=== PATIENT | female | born 1965 | race Caucasian/White ===

== ENCOUNTER 2016-12-19 11:31 | Emergency (ER) | payer MEDICAID ==
[~2016-12-19] VITALS: Ht 144.8 cm; Wt 73.9 kg
[~2016-12-19 11:31] MED LIST: AMLO5TAB92 PO; ASPI81TA2 PO; DICL75TA5 PO; ENAL10TA PO; HYDR25TA4 PO
[2016-12-19 11:34] VITALS: BP_SYST 130
--- NOTE | 2016-12-19 11:39 | NUR ---
Yasmin johns in [facility] - 12/19/16 at 1145 by DARIN Placed in room 3 . Placed on cardiac monitor technician, blood pressure machine and pulse oximeter. To gown for exam. Side rails up.
--- NOTE | 2016-12-19 11:40 | NUR ---
Yasmin johns in [facility] - 12/19/16 at 1145 by DARIN DONNA Celestin at bedside examining patient.
--- NOTE | 2016-12-19 11:40 | NUR ---
Note undone in EDM - 12/19/16 at 1145 by SDEDEX Pt brought in by her c/o RUQ just underneath the right breast for 3 days,nausea. pt is AAOX4,sinus tachy on the monitor.abdomen soft,mild tenderness to RUQ.skin warm,dry intact.
[2016-12-19 11:43] VITALS: BP_SYST 134
--- NOTE | 2016-12-19 11:48 | NUR ---
Pt to bed 4
--- NOTE | 2016-12-19 11:55 | NUR ---
ER at bedside examining patient.
--- NOTE | 2016-12-19 12:07 | NUR ---
Pt states red bumps on arms and legs with itching for the past 3 days. Pt states started a new gym and worked out there and then the bumps appeared. No other injuries/complaints per pt or noted.
[2016-12-19] MEDS ORDERED: DEXAMETHASONE SOD PHOSPHATE 10 MG/ML VIAL IM ONE (12:15)
[2016-12-19] MEDS ORDERED: DIPHENHYDRAMINE HCL 50 MG CAPSULE PO ONE (12:15)
[2016-12-19] MEDS ORDERED: FAMOTIDINE 20 MG TABLET PO ONE (12:15)
--- NOTE | 2016-12-19 12:35 | NUR ---
dPatient given written and verbal discharge instructions and verbalizes understanding. ER MD discussed with patient the results and treatment provided. Patient in stable condition. ID arm band removed. Rx of claritin given. Patient educated on pain management and to follow up with PMD. Pain Scale 0. Opportunity for questions provided and answered.
[2016-12-19 12:36] VITALS: BP_SYST 128
== END 2016-12-19 12:35 | disposition home or self-care (01) ==
LOC: SED 11:31
DX: L50.9 Urticaria, unspecified (principal); I10 Essential (primary) hypertension; M06.9 Rheumatoid arthritis, unspecified; E78.5 Hyperlipidemia, unspecified; Z79.899 Other long term (current) drug therapy
CPT/HCPCS: 96372; 99283; J1100; Q0163

== ENCOUNTER 2017-08-23 11:52 | Emergency (ER) | payer MEDICAID ==
[~2017-08-23] VITALS: Ht 144.8 cm; Wt 73.5 kg
[2017-08-23 12:33] VITALS: BP_SYST 133
--- NOTE | 2017-08-23 12:42 | NUR ---
Patient triaged and placed in waiting room. VSS and patient appears in no acute distress at this time. Accompanied by SELF, awaiting available bed, and MD notified of need for MSE.
[2017-08-23 13:08] LABS: BILIRUBIN,URINE NEGATIVE (NEGATIVE); BLOOD, URINE NEGATIVE (NEGATIVE); CLARITY/URINE CLEAR (CLEAR); COLOR,URINE YELLOW (YELLOW); GLUCOSE,URINE NEGATIVE (NEGATIVE); KETONES,URINE NEGATIVE (NEGATIVE); LEUKOCYTE ESTERASE ,URINE NEGATIVE (NEGATIVE); NITRITE, URINE POSITIVE (NEGATIVE); PROTEIN URINE NEGATIVE (NEGATIVE); UROBILINOGEN,URINE 0.2 (0.2-1.0)
[2017-08-23 13:23] LABS: BACTERIA,URINE MANY /HPF (None Seen); RBC,URINE 0-3 /HPF (0-3); WBC,URINE 0-3 /HPF (0-3)
[2017-08-23 13:24] LABS: MUCUS,URINE 1+ /LPF (None Seen)
--- NOTE | 2017-08-23 13:41 | NUR ---
Ambulatory to hallway bed
--- NOTE | 2017-08-23 13:56 | NUR ---
Pt c/o cough, body aches, congestion, urinary discomfort x2 days. Denies fevers, denies chest pain, denies shortness of breath.
[2017-08-23 14:00] VITALS: BP_SYST 135
--- NOTE | 2017-08-23 14:00 | NUR ---
Dr. Rojas at bedside for evaluation
--- NOTE | 2017-08-23 14:31 | NUR ---
Patient given written and verbal discharge instructions and verbalizes understanding. ER MD discussed with patient the results and treatment provided. Patient in stable condition. ID arm band removed. Rx of augmentin, albuterol, motrin given. Patient educated on pain management and to follow up with PMD. Pain Scale 3/10. Opportunity for questions provided and answered.
== END 2017-08-23 14:00 | disposition home or self-care (01) ==
LOC: SED 11:52
DX: J10.1 Influenza due to other identified influenza virus with other respiratory manifestations (principal); J40 Bronchitis, not specified as acute or chronic; N39.0 Urinary tract infection, site not specified; I10 Essential (primary) hypertension; M06.9 Rheumatoid arthritis, unspecified; E78.5 Hyperlipidemia, unspecified; Z79.899 Other long term (current) drug therapy
CPT/HCPCS: 36415; 81000-TC; 86710; 87086; 99284

== ENCOUNTER 2017-12-20 21:12 | Emergency (ER) | payer MEDICAID ==
[~2017-12-20] VITALS: Ht 144.8 cm; Wt 73.5 kg
--- NOTE | 2017-12-20 21:19 | NUR ---
Patient to ER bed 1 to gown for evaluation. Side rails up. Report given to Keyonna GRIFFIN.
--- NOTE | 2017-12-20 21:25 | NUR ---
Patient to ER C/O pelvic pain 8/10 radiating to lower back for the past week with nausea today, no vomiting. Patient also C/O constipation and urinary frequency with dysuria. AAOx4, unlabored breathing, no signs of acute distress.
[2017-12-20 21:27] VITALS: BP_SYST 117
--- NOTE | 2017-12-20 21:31 | NUR ---
ER MD Bowers at bedside evaluating the patient.
[2017-12-20 21:56] LABS: BILIRUBIN,URINE NEGATIVE (NEGATIVE); BLOOD, URINE NEGATIVE (NEGATIVE); CLARITY/URINE CLEAR (CLEAR); COLOR,URINE YELLOW (YELLOW); GLUCOSE,URINE NEGATIVE (NEGATIVE); KETONES,URINE NEGATIVE (NEGATIVE); LEUKOCYTE ESTERASE ,URINE TRACE (NEGATIVE); NITRITE, URINE NEGATIVE (NEGATIVE); PROTEIN URINE TRACE (NEGATIVE)
[2017-12-20 22:05] LABS: BACTERIA,URINE FEW /HPF (None Seen); MUCUS,URINE 1+ /LPF (None Seen); RBC,URINE 0-3 /HPF (0-3)
[2017-12-20 22:30] VITALS: BP_SYST 112
--- NOTE | 2017-12-20 22:30 | NUR ---
Patient given written and verbal discharge instructions and verbalizes understanding. ER MD Bowers discussed with patient the results and treatment provided. Patient in stable condition. ID arm band removed. Rx of bactrim & pyridium given. Patient educated on pain management and to follow up with PMD. Pain Scale 0/10. Opportunity for questions provided and answered. Medication side effect fact sheet provided.
== END 2017-12-20 22:30 | disposition home or self-care (01) ==
LOC: SED 21:12
DX: N12 Tubulo-interstitial nephritis, not specified as acute or chronic (principal); M06.9 Rheumatoid arthritis, unspecified; E11.9 Type 2 diabetes mellitus without complications; I10 Essential (primary) hypertension; E78.5 Hyperlipidemia, unspecified; Z88.6 Allergy status to analgesic agent; Z79.82 Long term (current) use of aspirin; Z79.899 Other long term (current) drug therapy; Z90.710 Acquired absence of both cervix and uterus
CPT/HCPCS: 81000-TC; 99283

== ENCOUNTER 2018-02-27 15:18 | Emergency (ER) | payer MEDICAID ==
[~2018-02-27] VITALS: Ht 144.8 cm; Wt 73.5 kg
[~2018-02-27 15:18] MED LIST changes: +ASPI-1155 PO; -ASPI81TA2 PO
[2018-02-27 15:25] VITALS: BP_SYST 122
[2018-02-27 16:16] VITALS: BP_SYST 118
== END 2018-02-27 16:16 | disposition home or self-care (01) ==
LOC: SED 15:18
DX: M79.675 Pain in left toe(s) (principal); E11.9 Type 2 diabetes mellitus without complications; I10 Essential (primary) hypertension; Z88.5 Allergy status to narcotic agent; Z79.82 Long term (current) use of aspirin; Z79.899 Other long term (current) drug therapy
CPT/HCPCS: 99284

== ENCOUNTER 2018-04-20 18:20 | Emergency (ER) | payer MEDICAID ==
[~2018-04-20] VITALS: Ht 144.8 cm; Wt 74.8 kg
[2018-04-20 18:20] VITALS: BP_SYST 147
[2018-04-20 20:35] VITALS: BP_SYST 145
== END 2018-04-20 20:35 | disposition home or self-care (01) ==
LOC: SED 18:20
DX: S16.1XXA Strain of muscle, fascia and tendon at neck level, initial encounter (principal); H92.03 Otalgia, bilateral; J02.9 Acute pharyngitis, unspecified; M54.9 Dorsalgia, unspecified; E11.9 Type 2 diabetes mellitus without complications; I10 Essential (primary) hypertension; M06.9 Rheumatoid arthritis, unspecified; Z88.6 Allergy status to analgesic agent; X58.XXXA Exposure to other specified factors, initial encounter; Y93.89 Activity, other specified; Y92.89 Other specified places as the place of occurrence of the external cause; Y99.8 Other external cause status
CPT/HCPCS: 99283

== ENCOUNTER 2019-02-06 19:03 | Emergency (ER) | payer MEDICAID ==
[~2019-02-06] VITALS: Ht 144.8 cm; Wt 77.1 kg
[2019-02-06 19:05] VITALS: BP_SYST 127
[2019-02-06] MEDS ORDERED: KETOROLAC TROMETHAMINE 30 MG VIAL IM ONE (19:45)
[2019-02-06 20:29] VITALS: BP_SYST 127
== END 2019-02-06 20:29 | disposition home or self-care (01) ==
LOC: SED 19:03
DX: S83.91XA Sprain of unspecified site of right knee, initial encounter (principal); I10 Essential (primary) hypertension; E11.9 Type 2 diabetes mellitus without complications; Z88.5 Allergy status to narcotic agent; Z79.82 Long term (current) use of aspirin; Z79.899 Other long term (current) drug therapy; X50.1XXA Overexertion from prolonged static or awkward postures, initial encounter; Y93.89 Activity, other specified; Y92.89 Other specified places as the place of occurrence of the external cause; Y99.8 Other external cause status
CPT/HCPCS: 29505; 73564; 96372; 99283; J1885

== ENCOUNTER 2019-03-20 20:12 | Emergency (ER) | payer MEDICAID ==
[~2019-03-20] VITALS: Ht 144.8 cm; Wt 77.1 kg
[2019-03-20 20:20] VITALS: BP_SYST 127
--- NOTE | 2019-03-20 20:35 | NUR ---
not in waiting room.
== END 2019-03-20 20:35 | disposition left against medical advice (07) ==
LOC: SED 20:12
DX: M25.561 Pain in right knee (principal); Z53.21 Procedure and treatment not carried out due to patient leaving prior to being seen by health care provider

== ENCOUNTER 2019-07-21 16:23 | Emergency (ER) | payer MEDICAID ==
[~2019-07-21] VITALS: Ht 144.8 cm; Wt 73.0 kg
[2019-07-21 17:00] VITALS: BP_SYST 147
--- NOTE | 2019-07-21 19:07 | NUR ---
MSE completed by myself.
--- NOTE | 2019-07-21 19:09 | NUR ---
Patient to ER Ch1 to gon for evaluation. Side rails up.
[2019-07-21] MEDS ORDERED: IBUPROFEN 800 MG TABLET PO ONE (19:15)
--- NOTE | 2019-07-21 19:15 | NUR ---
Pt came to the ED for R shoulder pain. Reports that she has had it for several months and it has progressively worsened over the past 3 days. Denies n/v/d or fever. No other complaints/injuries noted. Will cont. to monitor .
--- NOTE | 2019-07-21 19:20 | NUR ---
ER GRACIA Monique at bedside examining patient.
[2019-07-21 20:00] VITALS: BP_SYST 147
--- NOTE | 2019-07-21 20:00 | NUR ---
Patient given written and verbal discharge instructions and verbalizes understanding. ER POUNCING MACHINE OPERATOR Magalie Monique discussed with patient the results and treatment provided. Patient in stable condition. ID arm band removed. Rx of tramadol and mobic given. Patient educated on pain management and to follow up with PMD. Pain Scale 0/10. Opportunity for questions provided and answered. Medication side effect fact sheet provided.
--- NOTE | 2019-07-22 19:16 | NUR ---
Spoke with patient's mother and asked her to call us back at .
== END 2019-07-21 20:00 | disposition home or self-care (01) ==
LOC: SED 16:23
DX: M25.511 Pain in right shoulder (principal); E11.9 Type 2 diabetes mellitus without complications; I10 Essential (primary) hypertension; Z88.5 Allergy status to narcotic agent; Z79.899 Other long term (current) drug therapy
CPT/HCPCS: 73030; 99283; J7030